=== PATIENT | female | born 1985 | race Caucasian/White ===

== ENCOUNTER 2017-01-27 10:07 | Emergency (ER) | payer OTHER ==
[~2017-01-27] VITALS: Ht 167.6 cm; Wt 63.5 kg
[~2017-01-27 10:07] MED LIST: AMOXICILLIN500 MG PO; ANAPROX DS550 MG PO; CIPRO250 MG PO; CLINDAMYCIN HC300 MG PO; NORFLEX100 MG PO; PYRIDIUM200 M1 PO; TRAMADOL HCL50 MG PO; TRIMOX500 MG PO; TYLENOL W/CODEI1 TA2 PO; VIBRA-TAB100 MG PO; VICODIN 5/500 505 MG PO; VICODIN 500 MG-1 TAB PO; VISTARIL50 MG PO; ZITHROMAX Z PA250 MG PO
[2017-01-27] MEDS ORDERED: SEROQUEL300 MG PO (10:40)
[2017-01-27] MEDS ORDERED: REMERON15 M2 PO (10:41)
[2017-01-27] MEDS ORDERED: CEPHALEXIN500 M1 PO (11:40)
[2017-01-27] MEDS ORDERED: BACTRIM DS 8001 TA1 PO (11:40)
== END 2017-01-27 12:02 | disposition home or self-care (01) ==
LOC: ED 10:07
DX: L02.512 Cutaneous abscess of left hand (principal); F17.200 Nicotine dependence, unspecified, uncomplicated; Z98.890 Other specified postprocedural states; Z86.19 Personal history of other infectious and parasitic diseases; Z88.6 Allergy status to analgesic agent

== ENCOUNTER 2017-02-20 17:29 | Emergency (ER) | payer OTHER ==
[~2017-02-20] VITALS: Ht 167.6 cm; Wt 63.5 kg
[~2017-02-20 17:29] MED LIST changes: +BACTRIM DS 8001 TA1 PO; +CEPHALEXIN500 M1 PO; +REMERON15 M2 PO; +SEROQUEL300 MG PO
[2017-02-20] MEDS ORDERED: NAPROSYN500 MG PO (18:07)
== END 2017-02-20 18:32 | disposition home or self-care (01) ==
LOC: ED 17:29
DX: M20.012 Mallet finger of left finger(s) (principal); F17.200 Nicotine dependence, unspecified, uncomplicated; F14.10 Cocaine abuse, uncomplicated; Z98.890 Other specified postprocedural states

== ENCOUNTER → 2021-11-15 | Outpatient (CLI) | payer OTHER ==
[~2021-11-15] MED LIST changes: +NAPROSYN500 MG PO
== END | disposition home or self-care (01) ==
LOC: COVID19 16:06
PROVIDERS: ATTEND Family Medicine
DX: U07.1 COVID-19 (principal)